=== PATIENT | female | born 1995 | race Caucasian/White ===

== ENCOUNTER 2018-04-26 22:04 | Emergency (ER) | payer OTHER ==
[~2018-04-26] VITALS: Ht 165.1 cm; Wt 68.9 kg
[~2018-04-26 22:04] MED LIST: PREN-385 PO
[2018-04-26 22:09] VITALS: BP 123/90
[2018-04-26 23:02] LABS: BASOPHILS % (AUTO) 0.4 % (0.0-2.0); EOSINOPHILS # (AUTO) 0.1 K/uL (0-0.4); EOSINOPHILS % (AUTO) 0.9 % (0.0-4.0); HEMATOCRIT 38.8 % (36-48); HEMOGLOBIN 12.8 g/dL (12.0-16.0); LYMPHOCYTES # (AUTO) 1.6 K/uL (2.5-16.5); LYMPHOCYTES % (AUTO) 21.9 % (20.5-51.1); MEAN CORPUSCULAR HEMOGLOBIN 29 pg (27-31); MEAN CORPUSCULAR HGB CONC 33 g/dL (33-37); MEAN CORPUSCULAR VOLUME 87.6 fL (80-94); MONOCYTES # (AUTO) 0.6 K/uL (0.8-1.0); NEUTROPHILS # (AUTO) 4.9 K/uL (1.8-7.7); NEUTROPHILS % (AUTO) 68.8 % (42.2-75.2); PLATELET COUNT (AUTO) 159 K/uL (140-450); RED BLOOD CELL COUNT(AUTO) 4.44 MIL/uL (4.20-5.40); WHITE BLOOD COUNT (AUTO) 7.1 K/uL (4.8-10.8)
[2018-04-26 23:53] LABS: APPEARANCE,URINE SL CLOUDY (CLEAR); BILIRUBIN,URINE NEGATIVE (NEGATIVE); BLOOD, URINE NEGATIVE (NEGATIVE); COLOR,URINE YELLOW (YELLOW); LEUKOCYTE ESTERASE ,URINE TRACE (NEGATIVE); NITRITE, URINE NEGATIVE (NEGATIVE); UGLUCOSE NEGATIVE (NEGATIVE)
[2018-04-26 23:54] LABS: RBC,URINE 3-10 (FEW) /HPF (0-5); WBC,URINE 6-15 (FEW) /HPF (0-5)
[2018-04-27] MEDS ORDERED: ACETAMINOPHEN 325 MG TAB PO ONE (00:20)
[2018-04-27 00:40] VITALS: BP 112/72
== END 2018-04-27 00:40 | disposition home or self-care (01) ==
LOC: MED 22:04
DX: O20.0 Threatened abortion (principal); O23.41 Unspecified infection of urinary tract in pregnancy, first trimester; Z3A.01 Less than 8 weeks gestation of pregnancy
CPT/HCPCS: 36415; 76817; 81001; 81025; 84702; 85025; 86900; 86901; 87086; 99284

== ENCOUNTER 2018-05-10 03:21 | Emergency (ER) | payer OTHER ==
[~2018-05-10] VITALS: Ht 165.1 cm; Wt 64.9 kg
[2018-05-10 03:37] VITALS: BP 97/71
--- NOTE | 2018-05-10 03:43 | NUR ---
PT TAKEN TO BED 7
--- NOTE | 2018-05-10 04:00 | NUR ---
PT BIB SELF C/O N/V SINCE D/C YESTERDAY. PT HAS BEEN VOMITING BILE, ABD IS ROUND, SOFT, ACTIVE BS X4, NON TENDER. PT IS 9 WEEKS, M0. PT DENIES ANY VAGINAL BLEEDING. PT LAYING IN BED, VOMITING AT TIME, YELLOW BILE/MUCUS NOTED IN EMESIS, ER MD AWARE OF PT STATUS WILL CONTINUE W/ ORDERS.
[2018-05-10] MEDS ORDERED: NACL 0.9% 2,000 ML IV ONE (04:28)
[2018-05-10] MEDS ORDERED: diphenhydrAMINE 50 MG/ML VIAL IVP ONE (04:30)
[2018-05-10] MEDS ORDERED: METOCLOPRAMIDE 10 MG/2 ML INJ VIAL IVP ONE (04:30)
[2018-05-10 06:00] LABS: BASOPHILS % (AUTO) 0.4 % (0.0-2.0); EOSINOPHILS % (AUTO) 0.1 % (0.0-4.0); HEMATOCRIT 36.3 % (36-48); LYMPHOCYTES # (AUTO) 1.1 K/uL (2.5-16.5); LYMPHOCYTES % (AUTO) 13.9 % (20.5-51.1); MEAN CORPUSCULAR HEMOGLOBIN 29 pg (27-31); MEAN CORPUSCULAR HGB CONC 33 g/dL (33-37); MEAN CORPUSCULAR VOLUME 87.4 fL (80-94); MONOCYTES # (AUTO) 0.5 K/uL (0.8-1.0); MONOCYTES % (AUTO) 6.1 % (1.7-9.3); NEUTROPHILS # (AUTO) 6.1 K/uL (1.8-7.7); NEUTROPHILS % (AUTO) 79.5 % (42.2-75.2); PLATELET COUNT (AUTO) 154 K/uL (140-450); RED BLOOD CELL COUNT(AUTO) 4.15 MIL/uL (4.20-5.40); RED CELL DISTRIBUTION WIDTH 12.9 % (11.6-13.7); WHITE BLOOD COUNT (AUTO) 7.7 K/uL (4.8-10.8)
[2018-05-10 06:20] LABS: ANION GAP 15.6 (8-16); CARBON DIOXIDE 23.7 mmol/L (21-32); CREATININE 0.7 mg/dL (0.6-1.3); POTASSIUM 3.3 mmol/L (3.5-5.1); TOTAL BILIRUBIN 0.4 mg/dL (0.0-1.0)
[2018-05-10 06:21] LABS: ALBUMIN 3.6 g/dL (3.4-5.0)
--- NOTE | 2018-05-10 06:34 | NUR ---
Dr. Olivares evaluating patient at bedside.
[2018-05-10 07:12] LABS: APPEARANCE,URINE CLOUDY (CLEAR); BILIRUBIN,URINE NEGATIVE (NEGATIVE); BLOOD, URINE 3+ (NEGATIVE); COLOR,URINE RED (YELLOW); LEUKOCYTE ESTERASE ,URINE NEGATIVE (NEGATIVE); NITRITE, URINE NEGATIVE (NEGATIVE); RBC,URINE TOO NUMEROUS TO COUN /HPF (0-5); UGLUCOSE NEGATIVE (NEGATIVE); WBC,URINE 0-5 (RARE) /HPF (0-5)
--- NOTE | 2018-05-10 07:17 | NUR ---
REPORT GIVEN TO HOMERO GIL , TRANSFER OF CARE AT THIS TIME.
--- NOTE | 2018-05-10 07:48 | NUR ---
PT RESTING IN BED. DENIES NAUSEA, ABDOMINAL PAIN. NO VOMITING NOTED AT THIS TIME.
--- NOTE | 2018-05-10 07:55 | NUR ---
Assumed care of patient. Patient with no complaints. All needs met at this time. Will continue to monitor.
[2018-05-10 08:07] VITALS: BP 110/70
--- NOTE | 2018-05-10 08:07 | NUR ---
Patient discharged with v/s stable. Written and verbal after care instructions given and explained. Patient alert, oriented and verbalized understanding of instructions. Carried with steady gait. All questions addressed prior to discharge. ID band removed. Patient advised to follow up with PMD. Rx of Reglan 5mg given. Patient educated on indication of medication including possible reaction and side effects. Opportunity to ask questions provided and answered.
== END 2018-05-10 08:07 | disposition home or self-care (01) ==
LOC: MED 03:21
DX: O21.9 Vomiting of pregnancy, unspecified (principal); Z3A.08 8 weeks gestation of pregnancy
CPT/HCPCS: 36415; 80053; 81001; 83690; 85025; 96361; 96374; 96375; 99283; J1200; J2765; J7030

== ENCOUNTER 2018-07-13 13:33 | Emergency (ER) | payer OTHER ==
[~2018-07-13] VITALS: Ht 167.6 cm; Wt 64.0 kg
[2018-07-13 14:48] VITALS: BP 115/68
--- NOTE | 2018-07-13 15:57 | NUR ---
PT AMBULATED TO ER BED 12
[2018-07-13] MEDS ORDERED: MULTIVITAMIN-12 10 ML, THIAMINE 100 MG, FOLIC ACID 1 MG, MAGNESIUM SULFATE 50% 2,000 MG... IV SCH ×5 (16:20)
[2018-07-13] MEDS ORDERED: ACETAMINOPHEN 325 MG TAB PO ONE (16:20)
--- NOTE | 2018-07-13 16:33 | NUR ---
PATIENT PRESENTS TO ED WITH C/O HYPEREMESIS, SEVERE NAUSEA ; A1 LOWER BACK PAIN---DENIES ABDOMINAL PAIN, DENIES VAG BLEEDING WITH PT .. DENIES D; SKIN IS PINK/WARM/DRY; AAOX4 WITH EVEN AND STEADY GAIT; LUNGS CLEAR BL; HR EVEN AND REGULAR; PT DENIES ANY FEVER, CP, SOB, OR COUGH AT THIS TIME; PATIENT STATES PAIN OF 8/10 AT THIS TIME; VSS; PATIENT POSITIONED FOR COMFORT; HOB ELEVATED; BEDRAILS UP X2; BED DOWN. ER MD MADE AWARE OF PT STATUS.
[2018-07-13] MEDS ORDERED: ONDANSETRON 4 MG/2 ML VIAL IVP ONE (16:45)
[2018-07-13 17:14] LABS: BASOPHILS # (AUTO) 0.1 K/uL (0.00-0.22); BASOPHILS % (AUTO) 1.3 % (0.0-2.0); EOSINOPHILS % (AUTO) 0.1 % (0.0-4.0); HEMATOCRIT 37.8 % (36-48); HEMOGLOBIN 12.6 g/dL (12.0-16.0); LYMPHOCYTES # (AUTO) 0.4 K/uL (2.5-16.5); MEAN CORPUSCULAR HEMOGLOBIN 29 pg (27-31); MEAN CORPUSCULAR HGB CONC 33 g/dL (33-37); MONOCYTES # (AUTO) 0.3 K/uL (0.8-1.0); MONOCYTES % (AUTO) 3.4 % (1.7-9.3); NEUTROPHILS # (AUTO) 8.1 K/uL (1.8-7.7); NEUTROPHILS % (AUTO) 91.2 % (42.2-75.2); PLATELET COUNT (AUTO) 142 K/uL (140-450); RED BLOOD CELL COUNT(AUTO) 4.35 MIL/uL (4.20-5.40); RED CELL DISTRIBUTION WIDTH 13.5 % (11.6-13.7); WHITE BLOOD COUNT (AUTO) 8.8 K/uL (4.8-10.8)
[2018-07-13 17:39] LABS: ANION GAP 12.8 (8-16); CARBON DIOXIDE 25.9 mmol/L (21-32); CREATININE 0.6 mg/dL (0.6-1.3); POTASSIUM 3.7 mmol/L (3.5-5.1)
[2018-07-13 17:46] LABS: ALBUMIN 3.5 g/dL (3.4-5.0); TOTAL BILIRUBIN 0.6 mg/dL (0.0-1.0)
--- NOTE | 2018-07-13 17:49 | NUR ---
admits nausea has subsided. adds able to rest-----
--- NOTE | 2018-07-13 19:00 | NUR ---
Patient discharged with v/s stable. Written and verbal after care instructions given and explained. Patient alert, oriented and verbalized understanding of instructions. Ambulatory with steady gait. All questions addressed prior to discharge. ID band removed. Patient advised to follow up with PMD. Rx of MECLIZINE/PYRIDOXINE/TYLENOL given. Patient educated on indication of medication including possible reaction and side effects. Opportunity to ask questions provided and answered.
[2018-07-13 19:01] VITALS: BP 112/53
== END 2018-07-13 19:00 | disposition home or self-care (01) ==
LOC: MED 13:33
DX: O21.0 Mild hyperemesis gravidarum (principal); O26.892 Other specified pregnancy related conditions, second trimester; M54.5 Low back pain; O99.512 Diseases of the respiratory system complicating pregnancy, second trimester; J45.909 Unspecified asthma, uncomplicated; Z3A.18 18 weeks gestation of pregnancy; Z79.899 Other long term (current) drug therapy
CPT/HCPCS: 36415; 80053; 81002; 81025; 83690; 85025; 96365; 96366; 96375; 99283; A9153; J2405; J3411; J3475; J3490

== ENCOUNTER 2018-09-03 08:38 | Inpatient (IN) | payer OTHER ==
[~2018-09-03] VITALS: Ht 167.6 cm; Wt 67.1 kg
[2018-09-03 08:50] VITALS: BP 102/68
[2018-09-03 09:47] LABS: BASOPHILS % (AUTO) 0.2 % (0.0-2.0); EOSINOPHILS % (AUTO) 0.4 % (0.0-4.0); HEMATOCRIT 33.4 % (36-48); HEMOGLOBIN 11.1 g/dL (12.0-16.0); LYMPHOCYTES # (AUTO) 1.1 K/uL (2.5-16.5); LYMPHOCYTES % (AUTO) 12.2 % (20.5-51.1); MEAN CORPUSCULAR HEMOGLOBIN 29 pg (27-31); MEAN CORPUSCULAR HGB CONC 33 g/dL (33-37); MEAN CORPUSCULAR VOLUME 88.2 fL (80-94); MONOCYTES # (AUTO) 0.6 K/uL (0.8-1.0); MONOCYTES % (AUTO) 6.3 % (1.7-9.3); NEUTROPHILS # (AUTO) 7.4 K/uL (1.8-7.7); NEUTROPHILS % (AUTO) 80.9 % (42.2-75.2); PLATELET COUNT (AUTO) 158 K/uL (140-450); RED BLOOD CELL COUNT(AUTO) 3.78 MIL/uL (4.20-5.40); RED CELL DISTRIBUTION WIDTH 13.4 % (11.6-13.7); WHITE BLOOD COUNT (AUTO) 9.2 K/uL (4.8-10.8)
[2018-09-03 10:33] LABS: APPEARANCE,URINE CLOUDY (CLEAR); BILIRUBIN,URINE NEGATIVE (NEGATIVE); BLOOD, URINE 2+ (NEGATIVE); COLOR,URINE YELLOW (YELLOW); LEUKOCYTE ESTERASE ,URINE 1+ (NEGATIVE); NITRITE, URINE POSITIVE (NEGATIVE); PH,URINE 7.5 (5.0-9.0); UGLUCOSE NEGATIVE (NEGATIVE)
[2018-09-03 10:49] LABS: RBC,URINE 50-80 /HPF (0-5)
[2018-09-03 10:50] LABS: WBC,URINE 80-100 /HPF (0-5)
[2018-09-03] MEDS ORDERED: GENTAMICIN PER PHARMACY MC PRN ×2 (11:20)
[2018-09-03] MEDS: AMPICILLIN 2,000 MG in NACL 0.9% 100 ML IV SCH ×3 (11:33→23:38)
[2018-09-03] MEDS ORDERED: AMPICILLIN 2,000 MG VIAL ONE ×4 (11:41→23:42)
[2018-09-03 12:54] LABS: ALBUMIN 2.8 g/dL (3.4-5.0); ANION GAP 12.6 (8-16); CARBON DIOXIDE 24.5 mmol/L (21-32); CREATININE 0.6 mg/dL (0.6-1.3); POTASSIUM 4.1 mmol/L (3.5-5.1); TOTAL BILIRUBIN 0.2 mg/dL (0.0-1.0)
[2018-09-03] MEDS ORDERED: GENTAMICIN 120 MG in DEXTROSE 5% 100 ML IV SCH (13:00)
[2018-09-03] MEDS: IBUPROFEN 800 MG TAB PO PRN (14:07)
[2018-09-04] MEDS ORDERED: AMPICILLIN 2,000 MG VIAL ONE ×6 (03:27→23:19)
[2018-09-04] MEDS: AMPICILLIN 2,000 MG in NACL 0.9% 100 ML IV SCH ×5 (03:35→23:30)
[2018-09-04] MEDS: GENTAMICIN 80 MG in DEXTROSE 5% 100 ML IV SCH ×4 (05:13→21:02)
[2018-09-04] MEDS: LACTATED RINGERS 1,000 ML IV SCH ×3 (07:35→19:04)
--- NOTE | 2018-09-04 08:25 | NUR ---
PATIENT HAS BEEN SCREENED AND CATEGORIZED LOW NUTRITION RISK. PATIENT WILL BE SEEN WITHIN 7 DAYS OF ADMISSION. 09/09/[address]
[2018-09-04] MEDS: IBUPROFEN 800 MG TAB PO PRN ×2 (14:57→23:50)
[2018-09-05] MEDS: AMPICILLIN 2,000 MG in NACL 0.9% 100 ML IV SCH ×5 (03:25→23:19)
[2018-09-05] MEDS ORDERED: AMPICILLIN 2,000 MG VIAL ONE ×6 (03:27→23:22)
[2018-09-05] MEDS: GENTAMICIN 80 MG in DEXTROSE 5% 100 ML IV SCH ×3 (05:01→20:49)
[2018-09-06] MEDS: LACTATED RINGERS 1,000 ML IV SCH (01:00)
[2018-09-06] MEDS: AMPICILLIN 2,000 MG in NACL 0.9% 100 ML IV SCH (03:08)
[2018-09-06] MEDS ORDERED: AMPICILLIN 2,000 MG VIAL ONE ×3 (03:09→11:17)
[2018-09-06] MEDS: GENTAMICIN 80 MG in DEXTROSE 5% 100 ML IV SCH ×2 (04:59→13:04)
== END 2018-09-06 15:20 | disposition home or self-care (01) | DRG 566 ==
LOC: MLD 08:38 → OBSVTOIN 08:38 → MFCC 09-04 09:30
PROVIDERS: ADMIT Obstetrics & Gynecology; ATTEND Obstetrics & Gynecology
DX: O23.02 Infections of kidney in pregnancy, second trimester (principal); Z3A.26 26 weeks gestation of pregnancy; N13.6 Pyonephrosis
CPT/HCPCS: 36415; 76770; 76805; 80053; 80170; 81001; 85025; 85379; 87086; 87186; C1758; J0290; J1580; J7060; J7120; Q0092

== ENCOUNTER 2020-04-09 15:56 | Emergency (ER) | payer OTHER ==
[~2020-04-09] VITALS: Ht 172.7 cm; Wt 68.0 kg
[2020-04-09 16:03] VITALS: BP 126/94
[2020-04-09] MEDS ORDERED: MULTIVITAMIN-12 10 ML, THIAMINE 100 MG, MAGNESIUM SULFATE 50% 2,000 MG, FOLIC ACID 1 MG... IV ONE ×5 (16:10)
[2020-04-09] MEDS ORDERED: ONDANSETRON 4 MG/2 ML VIAL IVP ONE (16:10)
--- NOTE | 2020-04-09 16:13 | NUR ---
PT W/C ASSISTED TO BED 5.
--- NOTE | 2020-04-09 16:26 | NUR ---
24 YEAR OLD FEMALE COMPLAINS OF NAUSEA, VOMITTING AFTER DRINKING COPIOUS AMOUNTS OF ALCOHOL LAST NIGHT AT [facility]. PT DENIES ABDOMINAL PAIN, STATES THAT SHE FEELS AWFUL AND IS GOING TO . PT AOX4, BREATHING EVEN AND UNLABORED, SKIN WARM AND DRY. BED IN LOWEST POSITION, LOCKED, BED RAIL UPX1. PMH - ASTHMA ALLERGIES - NKA
--- NOTE | 2020-04-09 16:27 | NUR ---
PT STATES SHE IS UNABLE TO URINATE AT THIS TIME. PA MADE AWARE
[2020-04-09 16:47] LABS: BASOPHILS % (AUTO) 0.3 % (0.0-2.0); HEMATOCRIT 42.1 % (36-48); LYMPHOCYTES # (AUTO) 1.3 K/uL (2.5-16.5); LYMPHOCYTES % (AUTO) 10.3 % (20.5-51.1); MEAN CORPUSCULAR HEMOGLOBIN 28 pg (27-31); MEAN CORPUSCULAR HGB CONC 33 g/dL (33-37); MEAN CORPUSCULAR VOLUME 85.5 fL (80-94); MONOCYTES # (AUTO) 0.6 K/uL (0.8-1.0); MONOCYTES % (AUTO) 4.6 % (1.7-9.3); NEUTROPHILS # (AUTO) 10.5 K/uL (1.8-7.7); NEUTROPHILS % (AUTO) 84.8 % (42.2-75.2); PLATELET COUNT (AUTO) 207 K/uL (140-450); RED BLOOD CELL COUNT(AUTO) 4.92 MIL/uL (4.20-5.40); RED CELL DISTRIBUTION WIDTH 13.8 % (11.6-13.7); WHITE BLOOD COUNT (AUTO) 12.4 K/uL (4.8-10.8)
--- NOTE | 2020-04-09 17:42 | NUR ---
PT ALERT AND AWAKE, BREATHING EVEN AND UNLABORED. NO DISTRESS NOTED.
[2020-04-09 17:49] LABS: ALBUMIN 5.2 g/dL (3.4-5.0); ASPARTATE AMINOTRANSFERASE 15 U/L (15-37); CARBON DIOXIDE 23.3 mmol/L (21-32); CHLORIDE 104 mmol/L (98-107); CREATININE 0.9 mg/dL (0.6-1.3); GFR ARICAN-AMERICAN 100 mL/min (>90); GLUCOSE 137 mg/dL (74-106); POTASSIUM 3.3 mmol/L (3.5-5.1); SODIUM SERUM 145 mmol/L (136-145); TOTAL BILIRUBIN 0.7 mg/dL (0.0-1.0); UREA NITROGEN, BLOOD 14 mg/dL (7-18)
--- NOTE | 2020-04-09 19:15 | NUR ---
REPORT RECEIVED FROM GIL VALENTIN FOR CONTINUITY OF CARE
[2020-04-09] MEDS ORDERED: PROCHLORPERAZINE 10 MG/2 ML VIAL IVP ONE (19:25)
--- NOTE | 2020-04-09 20:07 | NUR ---
PT STATES SHE IS UNABLE TO URINATE AT THIS TIME. PA MADE AWARE.
[2020-04-09 20:30] VITALS: BP 126/94
[2020-04-09 21:05] LABS: BARBITURATE, URINE NEGATIVE ng/ml (NEG <=200); BENZODIAZEPINE, URINE NEGATIVE ng/mL (NEG <=200); CANNABINOID, URINE POSITIVE ng/mL (NEG <=50); COCAINE, URINE NEGATIVE ng/mL (NEG <=300); OPIATE, URINE NEGATIVE ng/mL (NEG <=2000); PHENCYCLIDINE SCREEN,URINE NEGATIVE ng/mL (NEG <=25)
== END 2020-04-09 20:30 | disposition home or self-care (01) ==
LOC: MED 15:56
DX: R11.2 Nausea with vomiting, unspecified (principal); J45.909 Unspecified asthma, uncomplicated; Z79.899 Other long term (current) drug therapy
CPT/HCPCS: 36415; 80053; 80305; 81002; 81025; 83690; 85025; 96365; 96366; 96375; 99284; A9153; G0482; J0780; J2405; J3411; J3475; J3490; J7030

== ENCOUNTER 2020-12-29 08:21 | Emergency (ER) | payer MEDICAID, SELFPAY ==
[~2020-12-29] VITALS: Ht 167.6 cm; Wt 63.5 kg
[2020-12-29 08:29] VITALS: BP 108/65
--- NOTE | 2020-12-29 08:32 | NUR ---
PT TO STAY IN TENT.
--- NOTE | 2020-12-29 09:01 | NUR ---
COLLECTED GABE REYES, WALKED TO LAB.
[2020-12-29] MEDS ORDERED: IBUP-2213 PO (09:06)
[2020-12-29 09:31] VITALS: BP 106/68
--- NOTE | 2020-12-29 09:32 | NUR ---
Patient discharged with v/s stable. Written and verbal after care instructions given COVID 19 and explained. Patient alert, oriented and verbalized understanding of instructions. Ambulatory with steady gait. All questions addressed prior to discharge. ID band removed. Patient advised to follow up with PMD. Rx of IBUPROFEN 400MG PO Q6H given. Patient educated on indication of medication including possible reaction and side effects. Opportunity to ask questions provided and answered.
== END 2020-12-29 09:32 | disposition home or self-care (01) ==
LOC: MED 08:21
DX: R05 Cough (principal); Z20.822 Contact with and (suspected) exposure to COVID-19; J45.909 Unspecified asthma, uncomplicated; Z79.899 Other long term (current) drug therapy
CPT/HCPCS: 99283; U0003

== ENCOUNTER 2021-09-23 10:54 | Emergency (ER) | payer MEDICAID, OTHER ==
[~2021-09-23] VITALS: Ht 167.6 cm; Wt 70.3 kg
[~2021-09-23 10:54] MED LIST changes: +IBUP-2213 PO
[2021-09-23 10:59] VITALS: BP 96/46
[2021-09-23] MEDS ORDERED: NACL 0.9% 1,000 ML IV ONE (11:35)
[2021-09-23] MEDS ORDERED: ONDANSETRON 4 MG/2 ML VIAL IVP ONE (11:35)
--- NOTE | 2021-09-23 12:04 | NUR ---
25 y/o female, c/o lower abdominal pain with n&v, 8 episodes of emesis, states she has brown streaks in emesis, and sob since last night. pt also states states her hands feel numb, equal strengths in upper and lower extremities. skin is pink/warm/dry. a&o x4 with even and steady gait. lungs clear bl, heart rate even and regular. pt denies dysuria, hematuria, urinary frequency or retention, or anyone sick in the household with the same symptoms. pt states pain is 7/10 at this time. patient positioned for comfort. hob elevated. bed down. ermd made aware of pt. pmh: irritable bowel syndrome nka med: denies Addendum: 09/23/21 at 1217 by MEDR 25 y/o female, c/o lower abdominal pain with n&v, 8 episodes of emesis, states she has brown streaks in emesis, and sob since last night. pt also states states her hands feel numb, equal strengths in upper and lower extremities. skin is pink/warm/dry. a&o x4 with even and steady gait. lungs clear bl, heart rate even and regular. pt denies dysuria, hematuria, urinary frequency or retention, or anyone sick in the household with the same symptoms. pt states pain is 7/10 at this time. patient positioned for comfort. hob elevated. bed down. ermd made aware of pt. pmh: asthma nka med: denies
--- NOTE | 2021-09-23 12:06 | NUR ---
pt unable to give urine at this time, call light within reach for assistance to bathroom
--- NOTE | 2021-09-23 12:16 | NUR ---
at bedside evaluating pt at this time
[2021-09-23] MEDS ORDERED: IBUP-2213 PO (12:59)
[2021-09-23] MEDS ORDERED: ONDA8TAB87 PO (12:59)
[2021-09-23] MEDS ORDERED: LOPE-289 PO (12:59)
[2021-09-23 13:23] VITALS: BP 96/46
--- NOTE | 2021-09-23 13:25 | NUR ---
Patient discharged with v/s stable. Written and verbal after care instructions given and explained. Patient alert, oriented and verbalized understanding of instructions. Ambulatory with steady gait. All questions addressed prior to discharge. ID band removed. Patient advised to follow up with PMD. Rx of ibuprofen, zofran, loperamide (sent) given. Patient educated on indication of medication including possible reaction and side effects. Opportunity to ask questions provided and answered.
== END 2021-09-23 13:23 | disposition home or self-care (01) ==
LOC: MED 10:54
DX: R10.30 Lower abdominal pain, unspecified (principal); R11.2 Nausea with vomiting, unspecified; R19.7 Diarrhea, unspecified; J45.909 Unspecified asthma, uncomplicated; Z79.899 Other long term (current) drug therapy
CPT/HCPCS: 81002; 81025; 96361; 96374; 99283; J2405

== ENCOUNTER 2021-09-23 14:40 | Emergency (ER) | payer OTHER ==
[~2021-09-23] VITALS: Ht 167.6 cm; Wt 70.3 kg
[~2021-09-23 14:40] MED LIST changes: +LOPE-289 PO; +ONDA8TAB87 PO
[2021-09-23 14:42] VITALS: BP 122/81
--- NOTE | 2021-09-23 14:47 | NUR ---
PT AMB TO BED 11.
--- NOTE | 2021-09-23 14:55 | NUR ---
25 y/o female, c/o lower abdominal pain with n&v since last night. pt was seen here 09/23/21 for same symptoms, but stated she is still experincing the pain, n/v/d and is unable to drive home due to pain. skin is pink/warm/dry. a&o x4 with even and steady gait. lungs clear bl, heart rate even and regular. pt denies dysuria, hematuria, urinary frequency or retention, or anyone sick in the household with the same symptoms. pt states pain is 7/10 at this time and cramping like in pain. abdomen is non-tender and soft to touch. patient positioned for comfort. hob elevated. bed down. ermd made aware of pt. pmh: asthma nka med: denies
[2021-09-23] MEDS ORDERED: ONDANSETRON 4 MG/2 ML VIAL IVP ONE (15:05)
[2021-09-23] MEDS ORDERED: METOCLOPRAMIDE 10 MG/2 ML INJ VIAL IVP ONE (15:05)
[2021-09-23] MEDS ORDERED: NACL 0.9% 1,000 ML IV ONE (15:05)
--- NOTE | 2021-09-23 15:21 | NUR ---
18G IV ESTABLISHED AND BLOODWORK HANDED TO MAYITO BRUNSON
--- NOTE | 2021-09-23 15:23 | NUR ---
PT TAKEN TO CT VIA W/C
[2021-09-23 15:29] LABS: BASOPHILS % (AUTO) 0.1 % (0.0-2.0); HEMATOCRIT 38.5 % (36-48); HEMOGLOBIN 12.8 g/dL (12.0-16.0); LYMPHOCYTES # (AUTO) 0.8 K/uL (2.5-16.5); MEAN CORPUSCULAR HEMOGLOBIN 28 pg (27-31); MEAN CORPUSCULAR HGB CONC 33 g/dL (33-37); MEAN CORPUSCULAR VOLUME 84.9 fL (80-94); MONOCYTES # (AUTO) 0.8 K/uL (0.8-1.0); MONOCYTES % (AUTO) 10.5 % (1.7-9.3); NEUTROPHILS # (AUTO) 5.8 K/uL (1.8-7.7); NEUTROPHILS % (AUTO) 78.4 % (42.2-75.2); PLATELET COUNT (AUTO) 206 K/uL (140-450); RED BLOOD CELL COUNT(AUTO) 4.53 MIL/uL (4.20-5.40); RED CELL DISTRIBUTION WIDTH 13.6 % (11.6-13.7); WHITE BLOOD COUNT (AUTO) 7.4 K/uL (4.8-10.8)
--- NOTE | 2021-09-23 15:32 | NUR ---
PT RETURNED TO BED [address] VIA W/C
--- NOTE | 2021-09-23 15:49 | NUR ---
[employer] BEDSIDE COLLECTING CULTURES
[2021-09-23 16:15] LABS: ALBUMIN 4.3 g/dL (3.4-5.0); CARBON DIOXIDE 21.5 mmol/L (21-32); CREATININE 0.8 mg/dL (0.6-1.3); POTASSIUM 3.5 mmol/L (3.5-5.1); TOTAL BILIRUBIN 0.7 mg/dL (0.0-1.0)
--- NOTE | 2021-09-23 16:57 | NUR ---
PT AMBUALTED TO RESTROOM AND PROVIDED URINE CUP FOR SAMPLE
--- NOTE | 2021-09-23 17:02 | NUR ---
URINE COLLECTED AND HANDED TO LANETTE BEDSIDE
--- NOTE | 2021-09-23 17:06 | NUR ---
PT PROVIDED WITH CUP OF WATER BEDSIDE. PT STATED RELIEF FROM PAIN AND NO NAUSEA AT THIS TIME
[2021-09-23 17:44] VITALS: BP 93/55
--- NOTE | 2021-09-23 17:44 | NUR ---
IV removed, catheter intact and site benign. Applied folded 4x4 gauze and tape to stop bleeding.
--- NOTE | 2021-09-23 17:44 | NUR ---
Patient discharged with v/s stable. Written and verbal after care instructions given and explained. Patient verbalized understanding. Ambulatory with steady gait. All questions addressed prior to discharge. Advised to follow up with PMD.
[2021-09-23 18:12] LABS: APPEARANCE,URINE CLEAR (CLEAR); BILIRUBIN,URINE NEGATIVE (NEGATIVE); BLOOD, URINE NEGATIVE (NEGATIVE); COLOR,URINE YELLOW (YELLOW); LEUKOCYTE ESTERASE ,URINE NEGATIVE (NEGATIVE); NITRITE, URINE NEGATIVE (NEGATIVE); UGLUCOSE NEGATIVE (NEGATIVE)
== END 2021-09-23 17:44 | disposition home or self-care (01) ==
LOC: MED 14:40
DX: R11.2 Nausea with vomiting, unspecified (principal); R10.31 Right lower quadrant pain; R10.32 Left lower quadrant pain; J45.909 Unspecified asthma, uncomplicated; Z79.899 Other long term (current) drug therapy
CPT/HCPCS: 36415; 74176; 80053; 81003; 83605; 83690; 85025; 87040; 96361; 96374; 96375; 99284; J2405; J2765; J7030

== ENCOUNTER 2022-09-02 10:24 | Emergency (ER) | payer OTHER ==
[~2022-09-02] VITALS: Ht 167.6 cm; Wt 70.3 kg
[2022-09-02 10:43] VITALS: BP 110/69
[2022-09-02] MEDS ORDERED: CETI-24 PO (12:06)
[2022-09-02] MEDS ORDERED: ONDA-188 PO (12:06)
[2022-09-02] MEDS ORDERED: ALBU0.0912 IH (12:06)
[2022-09-02] MEDS ORDERED: ACET-9882 PO (12:06)
[2022-09-02] MEDS ORDERED: IBUP-2213 PO (12:06)
--- NOTE | 2022-09-02 12:50 | NUR ---
Patient discharged with v/s stable. Written and verbal after care VIRAL SYNDROME instructions given and explained. Patient verbalized understanding. Ambulatory with steady gait. All questions addressed prior to discharge. Advised to follow up with PMD.
== END 2022-09-02 13:07 | disposition home or self-care (01) ==
LOC: MED 10:24
DX: J06.9 Acute upper respiratory infection, unspecified (principal); Z20.822 Contact with and (suspected) exposure to COVID-19; J45.909 Unspecified asthma, uncomplicated; Z79.899 Other long term (current) drug therapy
CPT/HCPCS: 71045; 99284

== ENCOUNTER 2022-09-26 07:21 | Emergency (ER) | payer OTHER ==
[~2022-09-26] VITALS: Ht 170.2 cm; Wt 63.5 kg
[~2022-09-26 07:21] MED LIST changes: +ACET-9882 PO; +ALBU0.0912 IH; +CETI-24 PO; +ONDA-188 PO
[2022-09-26 07:54] VITALS: BP 132/80
[2022-09-26] MEDS ORDERED: FAMOTIDINE 20 MG/2 ML VIAL IVP ONE (08:10)
[2022-09-26] MEDS ORDERED: NACL 0.9% 1,000 ML IV SCH (08:10)
[2022-09-26] MEDS ORDERED: ONDANSETRON 4 MG/2 ML VIAL IVP ONE (08:10)
[2022-09-26 08:27] LABS: BASOPHILS % (AUTO) 0.3 % (0.0-2.0); EOSINOPHILS % (AUTO) 0.1 % (0.0-4.0); HEMATOCRIT 40.9 % (36-48); HEMOGLOBIN 13.9 g/dL (12.0-16.0); LYMPHOCYTES # (AUTO) 1.2 K/uL (2.5-16.5); LYMPHOCYTES % (AUTO) 11.9 % (20.5-51.1); MEAN CORPUSCULAR HEMOGLOBIN 30 pg (27-31); MEAN CORPUSCULAR HGB CONC 34 g/dL (33-37); MEAN CORPUSCULAR VOLUME 87.1 fL (80-94); MONOCYTES # (AUTO) 0.4 K/uL (0.8-1.0); MONOCYTES % (AUTO) 3.8 % (1.7-9.3); NEUTROPHILS # (AUTO) 8.4 K/uL (1.8-7.7); NEUTROPHILS % (AUTO) 83.9 % (42.2-75.2); PLATELET COUNT (AUTO) 211 K/uL (140-450); RED BLOOD CELL COUNT(AUTO) 4.69 MIL/uL (4.20-5.40); RED CELL DISTRIBUTION WIDTH 13.4 % (11.6-13.7)
[2022-09-26 08:58] LABS: ALBUMIN 4.6 g/dL (3.4-5.0); ANION GAP 18.9 (8-16); CARBON DIOXIDE 21.3 mmol/L (21-32); CREATININE 0.9 mg/dL (0.6-1.3); POTASSIUM 3.2 mmol/L (3.5-5.1); TOTAL BILIRUBIN 0.6 mg/dL (0.0-1.0)
[2022-09-26] MEDS ORDERED: METOCLOPRAMIDE 10 MG/2 ML INJ VIAL IVP ONE (09:35)
[2022-09-26] MEDS ORDERED: diphenhydrAMINE 50 MG/ML VIAL IVP ONE (09:35)
[2022-09-26 10:09] LABS: APPEARANCE,URINE CLEAR (CLEAR); BILIRUBIN,URINE NEGATIVE (NEGATIVE); BLOOD, URINE NEGATIVE (NEGATIVE); COLOR,URINE YELLOW (YELLOW); LEUKOCYTE ESTERASE ,URINE NEGATIVE (NEGATIVE); NITRITE, URINE NEGATIVE (NEGATIVE); PH,URINE 8.5 (5.0-9.0); UGLUCOSE NEGATIVE (NEGATIVE)
[2022-09-26 10:31] LABS: BARBITURATE, URINE NEGATIVE ng/ml (NEG <=200); BENZODIAZEPINE, URINE NEGATIVE ng/mL (NEG <=200); CANNABINOID, URINE NEGATIVE ng/mL (NEG <=50); COCAINE, URINE NEGATIVE ng/mL (NEG <=300); OPIATE, URINE NEGATIVE ng/mL (NEG <=2000); PHENCYCLIDINE SCREEN,URINE NEGATIVE ng/mL (NEG <=25)
[2022-09-26] MEDS ORDERED: ONDANSETRON 4 MG ODT PO ONE (11:00)
[2022-09-26] MEDS ORDERED: ALUMINUM HYD/MAG/SIMETHICONE 30 ML UDC PO ONE (11:00)
[2022-09-26] MEDS ORDERED: PROCHLORPERAZINE 10 MG/2 ML VIAL IVP ONE (11:15)
[2022-09-26] MEDS ORDERED: ONDA-188 SL (11:39)
[2022-09-26] MEDS ORDERED: POTASSIUM CHLORIDE 20% 40 MEQ/15 ML UDC PO ONE (11:40)
[2022-09-26] MEDS ORDERED: OMEP40EC23 PO (11:40)
[2022-09-26 12:05] VITALS: BP 111/63
--- NOTE | 2022-09-26 12:05 | NUR ---
Patient discharged with v/s stable. Written and verbal after care instructions given and explained. Patient alert, oriented and verbalized understanding of instructions. Ambulatory with steady gait. All questions addressed prior to discharge. ID band removed. Patient advised to follow up with PMD. Rx of ZOFRAN, OMERPRAZOLE given. Patient educated on indication of medication including possible reaction and side effects. Opportunity to ask questions provided and answered.
== END 2022-09-26 12:05 | disposition home or self-care (01) ==
LOC: MED 07:21
DX: R10.9 Unspecified abdominal pain (principal); R11.2 Nausea with vomiting, unspecified; E87.6 Hypokalemia; R19.7 Diarrhea, unspecified; Z79.899 Other long term (current) drug therapy
CPT/HCPCS: 36415; 80053; 80305; 81003; 81025; 83690; 85025; 96361; 96374; 96375; 99285; J0780; J1200; J2405; J2765; J3490; J7030

== ENCOUNTER 2022-09-30 05:45 | Emergency (ER) | payer OTHER ==
[~2022-09-30] VITALS: Ht 167.6 cm; Wt 54.4 kg
[~2022-09-30 05:45] MED LIST changes: +OMEP40EC23 PO; +ONDA-188 SL
[2022-09-30 06:06] VITALS: BP 119/88
--- NOTE | 2022-09-30 06:13 | NUR ---
PT W/C ASSISTED TO BED
--- NOTE | 2022-09-30 06:29 | NUR ---
AT TO EXAMINE PT
[2022-09-30] MEDS ORDERED: diphenhydrAMINE 50 MG/ML VIAL IVP ONE (06:30)
[2022-09-30] MEDS ORDERED: PANTOPRAZOLE 40 MG INJ VIAL IVP ONE (06:30)
[2022-09-30] MEDS ORDERED: NACL 0.9% 1,000 ML IV ONE ×2 (06:30→07:05)
[2022-09-30] MEDS ORDERED: HALOPERIDOL IM 5 MG/ML VIAL IVP ONE (06:30)
[2022-09-30] MEDS ORDERED: HALOPERIDOL IM 5 MG/ML VIAL IM ONE (06:45)
[2022-09-30 06:49] LABS: BASOPHILS % (AUTO) 0.4 % (0.0-2.0); EOSINOPHILS % (AUTO) 0.1 % (0.0-4.0); HEMATOCRIT 38.6 % (36-48); HEMOGLOBIN 13.2 g/dL (12.0-16.0); LYMPHOCYTES # (AUTO) 1.2 K/uL (2.5-16.5); LYMPHOCYTES % (AUTO) 14.9 % (20.5-51.1); MEAN CORPUSCULAR HEMOGLOBIN 29 pg (27-31); MEAN CORPUSCULAR HGB CONC 34 g/dL (33-37); MEAN CORPUSCULAR VOLUME 85.9 fL (80-94); MONOCYTES # (AUTO) 0.5 K/uL (0.8-1.0); MONOCYTES % (AUTO) 5.7 % (1.7-9.3); NEUTROPHILS # (AUTO) 6.2 K/uL (1.8-7.7); NEUTROPHILS % (AUTO) 78.9 % (42.2-75.2); PLATELET COUNT (AUTO) 176 K/uL (140-450); RED CELL DISTRIBUTION WIDTH 13.2 % (11.6-13.7); WHITE BLOOD COUNT (AUTO) 7.9 K/uL (4.8-10.8)
[2022-09-30 07:04] LABS: ALBUMIN 4.4 g/dL (3.4-5.0); CARBON DIOXIDE 24.6 mmol/L (21-32); MAGNESIUM 1.9 mg/dL (1.8-2.4); POTASSIUM 3.6 mmol/L (3.5-5.1); TOTAL BILIRUBIN 0.6 mg/dL (0.0-1.0)
[2022-09-30 07:07] LABS: PHOSPHORUS 0.9 mg/dL (2.5-4.9)
[2022-09-30] MEDS ORDERED: SODIUM PHOSPHATE 15 MMOLE in NACL 0.9% 250 ML IV ONE (07:10)
[2022-09-30 07:12] VITALS: BP 112/80
--- NOTE | 2022-09-30 07:21 | NUR ---
REPORT GIVEN TO GARRETT VALENTIN
[2022-09-30] MEDS ORDERED: SODIUM PHOSPHATE 15 MMOLE in NACL 0.9% 250 ML IV SCH (07:29)
[2022-09-30 09:13] LABS: APPEARANCE,URINE CLEAR (CLEAR); BILIRUBIN,URINE NEGATIVE (NEGATIVE); BLOOD, URINE NEGATIVE (NEGATIVE); COLOR,URINE YELLOW (YELLOW); LEUKOCYTE ESTERASE ,URINE NEGATIVE (NEGATIVE); NITRITE, URINE NEGATIVE (NEGATIVE); UGLUCOSE NEGATIVE (NEGATIVE)
[2022-09-30] MEDS ORDERED: SODIUM PHOS / POTASSIUM PHOS 1 PKT PDR PO ONE (11:15)
[2022-09-30] MEDS ORDERED: METO-486 PO (12:10)
--- NOTE | 2022-09-30 12:18 | NUR ---
Patient does not wish to proceed with medical care recommended by MD POWERS. Patient given information related to possible complications, up to and including , which could occur as a result of leaving hospital at this time. Patient verbalizes understanding of risks involved leaving against medical advice. Patient has signed AMA form.
== END 2022-09-30 12:06 | disposition left against medical advice (07) ==
LOC: MED 05:45
DX: E83.39 Other disorders of phosphorus metabolism (principal); K80.20 Calculus of gallbladder without cholecystitis without obstruction; R11.2 Nausea with vomiting, unspecified; Z20.822 Contact with and (suspected) exposure to COVID-19; J45.909 Unspecified asthma, uncomplicated; Z79.899 Other long term (current) drug therapy; Z79.1 Long term (current) use of non-steroidal anti-inflammatories (NSAID)
CPT/HCPCS: 36415; 74176; 76705; 80053; 81003; 83690; 83735; 84100; 85025; 87426; 96361; 96365; 96366; 96372; 96375; 99285; C9113; J1200; J1630; J7030; Q0092

== ENCOUNTER 2023-01-20 06:05 | Emergency (ER) | payer OTHER ==
[~2023-01-20] VITALS: Ht 167.6 cm; Wt 71.2 kg
[~2023-01-20 06:05] MED LIST changes: +METO-486 PO
[2023-01-20 06:12] VITALS: BP 118/89; PULSE 90; RESP 14; TEMP 97.8; O2SAT 99
[2023-01-20] MEDS ORDERED: ONDANSETRON 4 MG ODT PO ONE (06:20)
[2023-01-20] MEDS ORDERED: NACL 0.9% 1,000 ML IV ONE (06:30)
[2023-01-20] MEDS ORDERED: ONDANSETRON 4 MG/2 ML VIAL IVP ONE (06:30)
[2023-01-20] MEDS ORDERED: ONDA8TAB87 PO (06:40)
[2023-01-20 06:52] VITALS: BP 109/76; PULSE 81; RESP 14; TEMP 97.8; O2SAT 100
[2023-01-20] MEDS ORDERED: HALOPERIDOL IM 5 MG/ML VIAL IM ONE (07:05)
== END 2023-01-20 08:05 | disposition home or self-care (01) ==
LOC: MED 06:05
DX: R11.2 Nausea with vomiting, unspecified (principal); R19.7 Diarrhea, unspecified; J45.909 Unspecified asthma, uncomplicated; Z79.899 Other long term (current) drug therapy
CPT/HCPCS: 96361; 96372; 96374; 99284; J1630; J2405; J7030; Q0162

== ENCOUNTER 2023-08-09 21:57 | Emergency (ER) | payer OTHER ==
[~2023-08-09] VITALS: Ht 167.6 cm; Wt 69.4 kg
[2023-08-09 22:29] VITALS: BP 115/71; PULSE 79; RESP 15; TEMP 97.4; O2SAT 100
[2023-08-10] MEDS ORDERED: CARB15DR61 RIGHT EAR (01:06)
[2023-08-10] MEDS ORDERED: BENZ-300 PO (01:06)
[2023-08-10] MEDS ORDERED: IBUP-2218 PO (01:06)
== END 2023-08-10 01:14 | disposition home or self-care (01) ==
LOC: MED 21:57
DX: J02.8 Acute pharyngitis due to other specified organisms (principal); B97.89 Other viral agents as the cause of diseases classified elsewhere; H61.21 Impacted cerumen, right ear; Z79.899 Other long term (current) drug therapy
CPT/HCPCS: 87081; 99283

== ENCOUNTER 2023-10-29 07:00 | Emergency (ER) | payer OTHER ==
[~2023-10-29] VITALS: Ht 167.6 cm; Wt 65.5 kg
[~2023-10-29 07:00] MED LIST changes: +BENZ-300 PO; +CARB15DR61 RIGHT EAR; +IBUP-2218 PO
[2023-10-29 07:17] VITALS: BP 120/88; PULSE 67; RESP 16; TEMP 98.6; O2SAT 99
[2023-10-29] MEDS: PROCHLORPERAZINE 10 MG/2 ML VIAL IVP ONE (08:17)
[2023-10-29] MEDS: NACL 0.9% 1,000 ML IV ONE (08:18)
[2023-10-29 09:00] LABS: BASOPHILS % (AUTO) 0.2 % (0.0-2.0); EOSINOPHILS % (AUTO) 0.1 % (0.0-4.0); HEMATOCRIT 40.5 % (36-48); HEMOGLOBIN 13.8 g/dL (12.0-16.0); LYMPHOCYTES # (AUTO) 0.9 K/uL (2.5-16.5); LYMPHOCYTES % (AUTO) 11.6 % (20.5-51.1); MEAN CORPUSCULAR HEMOGLOBIN 29 pg (27-31); MEAN CORPUSCULAR HGB CONC 34 g/dL (33-37); MEAN CORPUSCULAR VOLUME 85.4 fL (80-94); MONOCYTES # (AUTO) 0.3 K/uL (0.8-1.0); MONOCYTES % (AUTO) 3.8 % (1.7-9.3); NEUTROPHILS # (AUTO) 6.3 K/uL (1.8-7.7); NEUTROPHILS % (AUTO) 84.3 % (42.2-75.2); PLATELET COUNT (AUTO) 158 K/uL (140-450); RED BLOOD CELL COUNT(AUTO) 4.74 MIL/uL (4.20-5.40); RED CELL DISTRIBUTION WIDTH 13.5 % (11.6-13.7); WHITE BLOOD COUNT (AUTO) 7.4 K/uL (4.8-10.8)
[2023-10-29 09:12] LABS: ANION GAP 20.6 (8-16); CALCIUM 9.4 mg/dL (8.5-10.1); CARBON DIOXIDE 18.5 mmol/L (21-32); POTASSIUM 3.1 mmol/L (3.5-5.1)
[2023-10-29] MEDS ORDERED: ONDANSETRON 4 MG/2 ML VIAL ONE (09:27)
[2023-10-29] MEDS: ONDANSETRON 4 MG/2 ML VIAL IVP ONE (09:32)
[2023-10-29] MEDS: POTASSIUM CHLORIDE 10 MEQ TABER PO ONE (09:35)
[2023-10-29] MEDS ORDERED: ACET-8905 PO (09:39)
[2023-10-29] MEDS ORDERED: ONDA-188 SL (09:39)
[2023-10-29 09:54] VITALS: BP 120/88; PULSE 67; RESP 16; TEMP 98.6; O2SAT 99
== END 2023-10-29 09:56 | disposition home or self-care (01) ==
LOC: MED 07:00
DX: O21.0 Mild hyperemesis gravidarum (principal); Z3A.01 Less than 8 weeks gestation of pregnancy; Z79.1 Long term (current) use of non-steroidal anti-inflammatories (NSAID); Z79.899 Other long term (current) drug therapy
CPT/HCPCS: 36415; 76801; 80048; 85025; 96361; 96374; 96375; 99285; J0780; J2405; J7030; Q0092

== ENCOUNTER 2024-02-04 03:50 | Emergency (ER) | payer OTHER ==
[~2024-02-04] VITALS: Ht 167.6 cm; Wt 62.6 kg
[~2024-02-04 03:50] MED LIST changes: +ACET-8905 PO
[2024-02-04 04:10] VITALS: BP 111/53; PULSE 69; RESP 16; TEMP 98.9; O2SAT 98
[2024-02-04 05:24] LABS: APPEARANCE,URINE CLEAR (CLEAR); BILIRUBIN,URINE NEGATIVE (NEGATIVE); BLOOD, URINE 3+ (NEGATIVE); COLOR,URINE YELLOW (YELLOW); LEUKOCYTE ESTERASE ,URINE NEGATIVE (NEGATIVE); NITRITE, URINE NEGATIVE (NEGATIVE); PROTEIN,URINE 2+ (NEGATIVE); UGLUCOSE NEGATIVE (NEGATIVE); UROBILINOGEN,URINE 0.2 EU/dL (0.2 - 1)
[2024-02-04 05:34] LABS: BACTERIA,URINE >30 (MANY) /HPF (None Seen); MUCUS,URINE 1+ /LPF (None Seen)
[2024-02-04] MEDS: MORPHINE SULFATE 4 MG/ML SYR IVP ONE (05:46)
[2024-02-04] MEDS: NACL 0.9% 1,000 ML IV ONE (05:47)
[2024-02-04 05:49] LABS: BASOPHILS # (AUTO) 0.1 K/uL (0.00-0.22); BASOPHILS % (AUTO) 1.2 % (0.0-2.0); EOSINOPHILS % (AUTO) 0.1 % (0.0-4.0); HEMATOCRIT 36.5 % (36-48); HEMOGLOBIN 12.3 g/dL (12.0-16.0); LYMPHOCYTES % (AUTO) 9.7 % (20.5-51.1); MEAN CORPUSCULAR HEMOGLOBIN 29 pg (27-31); MEAN CORPUSCULAR HGB CONC 34 g/dL (33-37); MEAN CORPUSCULAR VOLUME 85.6 fL (80-94); MONOCYTES % (AUTO) 10.2 % (1.7-9.3); NEUTROPHILS # (AUTO) 7.8 K/uL (1.8-7.7); NEUTROPHILS % (AUTO) 78.8 % (42.2-75.2); PLATELET COUNT (AUTO) 227 K/uL (140-450); RED BLOOD CELL COUNT(AUTO) 4.26 MIL/uL (4.20-5.40); RED CELL DISTRIBUTION WIDTH 13.7 % (11.6-13.7); WHITE BLOOD COUNT (AUTO) 9.9 K/uL (4.8-10.8)
[2024-02-04 06:12] LABS: ANION GAP 13.1 (8-16); CALCIUM 9.4 mg/dL (8.5-10.1); CREATININE 0.9 mg/dL (0.6-1.3); POTASSIUM 3.1 mmol/L (3.5-5.1)
[2024-02-04 07:02] LABS: ALBUMIN 4.3 g/dL (3.4-5.0); BILIRUBIN,DIRECT 0.1 mg/dL (0.0-0.3); TOTAL BILIRUBIN 0.5 mg/dL (0.0-1.0); TOTAL PROTEIN, SERUM 7.8 g/dL (6.4-8.2)
[2024-02-04] MEDS ORDERED: CIPR500T4 PO (07:20)
[2024-02-04 07:30] VITALS: BP 95/50; PULSE 60; RESP 17; TEMP 97.8; O2SAT 98
== END 2024-02-04 07:30 | disposition home or self-care (01) ==
LOC: MED 03:50
DX: K80.20 Calculus of gallbladder without cholecystitis without obstruction (principal); Z79.899 Other long term (current) drug therapy
CPT/HCPCS: 36415; 76705; 80048; 80076; 81001; 81025; 82150; 83690; 85025; 87086; 87186; 96361; 96374; 99285; J2270; J7030; Q0092